=== PATIENT | female | born 1970 | race Caucasian/White ===

== ENCOUNTER 2017-02-03 06:48 | Emergency (ER) | payer SELFPAY ==
[~2017-02-03] VITALS: Ht 160 cm; Wt 90.7 kg
[~2017-02-03 06:48] MED LIST: ALBU0.632 IH; BUDE0.5A2 IH; BUDE6HFA IH; CEFP500T4 PO; CIPR-225 PO; DOXY100C2 PO; FAMO20TA5 PO; FLT05NA16 NSEACH; HYDR-3456 PO; HYDR-3720 PO; HYDR-3729 PO; HYDR-757 PO; HYOS0.1216 PO; IPRA3AMP19 IH; LEVO500T69 PO; MECL25TA56 PO; METH4TAB PO; METR500T PO; ONDA-42 SL; PANT40TA2 PO; PENI500T PO; PNT40TEC PO; PRD20T PO; SCR1T PO; SUCR1TAB36 PO; TRM50T PO
--- OUTSIDE RECORDS SUMMARY | 2017-02-03 06:55 | XMS REPORT ---
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 Info Not Available Non Drug Allergy Problems Problem Type Condition Code Onset Dates Condition Status Assessment Cough R05 Active Assessment COPD exacerbation J44.1 Active Problem COPD exacerbation J44.1 Active Medications Medication Code System Code Instructions Start Date End Date Status Dosage Azithromycin [facility] [address]-51 250 MG Orally Once a day Aug 20, 2016 Aug 25, 2016 2 tablets on the first day, then 1 tablet daily for 4 days PredniSONE [facility] [address]-65 50 mg Orally Once a day Aug 20, 2016 Aug 25, 2016 1 tablet Albuterol Sulfate [facility] [address]-51 2.5 mg /3 mL (0.083 %) Jul 13, 2014 1 Each by Inhalation route every 3-4 hours for cough and wheeze PRN for wheezing or cough Cetirizine HCl [facility] [address]-74 10 MG Orally Once a day 1 tablet Symbicort [facility] [address]-28 160-4.5 mcg/actuation Inhalation Twice a day Jul 13, 2014 inhale 2 puffs by inhalation route 2 times per day in the morning and evening Procedures Procedure Coding System Code Date MEASURE BLOOD OXYGEN LEVEL CPT-4 70121 Aug 20, 2016 Office Visit, Est Pt., Level 3 CPT-4 89868 Aug 20, 2016 CHEST X-RAY CPT-4 75210 Aug 20, 2016 Vital Signs Date/Time: Aug 20, 2016 Cardiac Monitoring Heart Rate 88 bpm Weight 231.4 lbs Height 62 in BMI 42.32 Index Oximetry 98 % Blood Pressure Diastolic 94 mmHg Blood Pressure Systolic 136 mmHg Results Name Result Date Reference Range Unit Abnormality Flag Xray : Chest (IN HOUSE) Summary Purpose eClinicalWorks Submission
--- NOTE | 2017-02-03 07:20 | ED EENT ---
History of Present Illness General Chief Complaint: Oral/Throat Problems Stated Complaint: THROAT SWOLLEN,CAN'T SWOLLOW Source: patient History of Present Illness Time seen by provider: 07:05 Initial Comments C/O SEVERE SORE THROAT SINCE WAKING THIS AM STATES SHE WAS FINE WHEN SHE WENT TO BED "FELT HOT" LAST PM AROUND 1999, BUT DID NOT TAKE TEMP,AND HAS NOT FELT THAT WAY SINCE. 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 HAS NOT TAKEN ANYTHING FOR PAIN PCP: DANIELLE-TIA, PAOLA JAVIER Allergies and Home Medications Allergies Coded Allergies: acetaminophen (Unverified Adverse Reaction, Mild, nausea, 08/13/11) propoxyphene napsylate (Unverified Adverse Reaction, Mild, nausea, 08/13/11 ) Home Medications Albuterol Sulfate 0.63 Mg/3 Ml Vial.neb 1 EACH IH Q 4 - 6 HRS PRN PRN PRN SHORTNESS OF BREATH (Reported) PRN SHORTNESS OF BREATH Budesonide/Formoterol Fumarate 10.2 Gm Hfa.aer.ad 2 PUFF IH BID (Reported) Pantoprazole Sodium 40 Mg Tablet.dr #14 40 MG PO DAILY Prescribed by: AYALA TOLBERT on 08/26/16 135 Sucralfate 1 Gm Tablet #40 1 GM PO QID Prescribed by: AYALA TOLBERT on 08/26/16 1357 Review of Systems Constitutional: see HPI Eyes: No Symptoms Reported Ears: No Symptoms Reported Nose: see HPI Mouth: no symptoms reported Throat: see HPI paindenies neck stiffness, denies hoarse, denies aphonia, denies muffled, painful swallowingdenies difficulty with fluids Respiratory: no symptoms reported Cardiovascular: no symptoms reported Gastrointestinal: no symptoms reported : No Musculoskeletal: no symptoms reported Skin: no symptoms reported Neurological: No Symptoms Reported Hematologic/Lymphatic: No Symptoms Reported Immunological/Allergic: no symptoms reported Past Yrsnwlp-Ciumho-Gokipo Hx Patient Social History Alcohol Use: Denies Use Recreational Drug Use: No Smoking Status: Current Everyday Smoker (1/2 PPD) Type Used: Cigarettes Recent Foreign Travel: No Contact w/Someone Who Travel: No Recent Hopitalizations: No Immunizations Up To Date Tetanus Booster (TDap): Less than 5yrs Date of Influenza Vaccine: Aug 16, 2012 Seasonal Allergies Seasonal Allergies: Yes Surgeries HX Surgeries: Yes (HERNIA REPAIR) Surgeries: Abdominal, Section, Gallbladder Respiratory Hx Respiratory Disorders: Yes Respiratory Disorders: Asthma, Pneumonia, Chronic Bronchitis Cardiovascular Hx Cardiac Disorders: No Neurological Hx Neurological Disorders: No Reproductive System Hx Reproductive Disorders: No Genitourinary Hx Genitourinary Disorders: No Gastrointestinal Hx Gastrointestinal Disorders: Yes (VENTRAL HERNIA ) Gastrointestinal Disorders: Abdominal Hernia, Hiatal Hernia Musculoskeletal Hx Musculoskeletal Disorders: No Endocrine Hx Endocrine Disorders: No HEENT HX ENT Disorders: No Cancer Hx Cancer: No Psychosocial Hx Psychiatric Problems: No Integumentary HX Skin/Integumentary Disorder: No Blood Transfusions Hx Blood Disorders: No Physical Exam Vital Signs Vital Sign - Last 12Hours 02/03/17 07:11 Temp 98.8 Pulse 90 Resp 18 B/P 149/99 Pulse Ox 96 General Appearance: WD/WN no apparent distress Eyes: bilateral eye EOMI, bilateral eye PERRL, bilateral eye normal inspection Ears: bilateral ear TM normal, bilateral ear auricle normal, bilateral ear canal normal Nose: normal inspection Mouth/Throat: No mandibular swelling, No maxillary swelling, No tonsillar exudate, No tonsillar swelling, No uvula swelling, No voice changes, other ( PHARYNX WITH MODERATE ERYTHEMA, NO EXDUATE, NO PALATAL PETECHIAE. 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 no motor/sensory deficits alert normal mood/affect oriented x 3 Skin: normal color warm/dryNo rash, tattoos/piercings (EXTENSIVE TATTOOS) Progress/Results/Core Measures Results/Orders Lab Results Laboratory Tests Test 02/03/17 07:05 Range/Units Group A Streptococcus Screen NEGATIVE NEGATIVE My Orders Orders-ITZ OLVERA DO Rapid Strep A Screen (02/03/17 07:07) Vital Signs/I&O Vital Sign - Last 12Hours 02/03/17 07:11 Temp 98.8 Pulse 90 Resp 18 B/P 149/99 Pulse Ox 96 Departure Impression Impression: Primary Impression: Pharyngitis Disposition: HOME, SELF-CARE Condition: Stable Departure-Patient Inst. Referrals: [facility] (PCP/Family) Primary Care Physician Patient Instructions: Sore Throat, Adult (DC) Add. Discharge Instructions: TYLENOL 1 GRAM / MOTRIN 800 MG 4 TIMES A DAY NEEDED FOR PAIN OR FEVER FREQUENT SALT WATER GARGLES LOTS OF CLEAR LIQUIDS FOLLOW UP WITH [facility] IN 2-3 DAYS IF NO BETTER All discharge instructions reviewed with patient and/or family. Voiced understanding. Scripts Prednisone 10 Mg Tab40 Mg PO DAILY #12 TAB Prov:ITZ OLVERA DO 02/03/17 Amoxicillin/Potassium Clav (Augmentin 875-125 Tablet)1 Each Tablet1 Each PO BID INFECTION #20 TAB Prov:ITZ OLVERA DO 02/03/17 Work/School Note: Work Release Form Date Seen in the Emergency Department: Feb 03, 2017 Return to Work: Feb 05, 2017 ITZ OLVERA DO Feb 03, 2017 07:19
[2017-02-03] MEDS ORDERED: AMOX-358 PO (07:28)
[2017-02-03] MEDS ORDERED: PRD10T PO (07:28)
[2017-02-03 07:43] VITALS: BP 140/82
[2017-02-03] MEDS ORDERED: KETOROLAC 60 MG/2 ML VIAL IM ONE (07:45)
[2017-02-03] MEDS ORDERED: LIDOCAINE 1% INJ 20 ML (XYLOCAINE) VIAL INJ ONE (07:45)
[2017-02-03] MEDS ORDERED: cefTRIAXone 1 GM (ROCEPHIN) VIAL IM ONE (07:45)
== END 2017-02-03 07:55 | disposition home or self-care (01) ==
LOC: EDUNIT# 06:48 → ER 06:51
DX: J02.9 Acute pharyngitis, unspecified (principal); F17.210 Nicotine dependence, cigarettes, uncomplicated
CPT/HCPCS: 87430; 96372; 99282

== ENCOUNTER 2017-02-26 19:11 | Emergency (ER) | payer SELFPAY ==
[~2017-02-26] VITALS: Ht 160 cm; Wt 90.7 kg
[~2017-02-26 19:11] MED LIST changes: +AMOX-358 PO; +PRD10T PO
[2017-02-26] MEDS ORDERED: RT-ALBUTEROL/IPRATROPIUM 3 ML (DUONEB) VIAL INH ONE (19:45)
[2017-02-26] MEDS ORDERED: DEXAMETHASONE 4 MG/ML SDV (DECADRON) IH ONE (19:45)
[2017-02-26] MEDS ORDERED: predniSONE 10 MG TAB PO ONE (19:45)
[2017-02-26] MEDS ORDERED: BUDE1AMP IH (20:10)
[2017-02-26] MEDS ORDERED: D-ME118S7 PO (20:10)
[2017-02-26] MEDS ORDERED: BENZ-13 PO (20:10)
[2017-02-26] MEDS ORDERED: PRD10T PO (20:10)
--- NOTE | 2017-02-26 20:12 | ED Cough/URI ---
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 STATES SHE WAS IN SOME PROGRAM THAT PAID FOR HER MEDICATION, BUT THAT PROGRAM HAS STOPPED, AND THEREFORE SHE IS UNABLE TO TEZ REFILLED DUE TO COST. HAS NOT DISCUSSED THIS WITH JAMEY PT CONTINUES TO SMOKE PCP: JAMEY, PAOLA JAVIER Allergies and Home Medications Allergies Coded Allergies: acetaminophen (Unverified Adverse Reaction, Mild, nausea, 08/13/11) propoxyphene napsylate (Unverified Adverse Reaction, Mild, nausea, 08/13/11 ) Home Medications Albuterol Sulfate 0.63 Mg/3 Ml Vial.neb, 1 EACH IH Q 4 - 6 HRS PRN PRN for SHORTNESS OF BREATH, (Reported) PRN SHORTNESS OF BREATH Benzonatate 100 Mg Capsule, 1-2 TAB PO TID, #30 Prescribed by: ITZ OLVERA on 02/26/172009 Budesonide 1 Mg/2 Ml Ampul.neb, 1 MG IH BID, #1 Prescribed by: ITZ OLVERA on 02/26/172009 D-Methorphan Hb/Prometh HCl 118 Ml Syrup, 1-2 TSP PO Q4H, #120 Prescribed by: ITZ OLVERA on 02/26/172009 Prednisone 10 Mg Tab, 40 MG PO DAILY, #12 Prescribed by: ITZ OLVERA on 02/26/172009 Constitutional: no symptoms reported EENTM: no symptoms reported Respiratory: see HPI, cough, short of breath, wheezing Cardiovascular: no symptoms reported Gastrointestinal: no symptoms reported Genitourinary: no symptoms reported Musculoskeletal: no symptoms reported Skin: no symptoms reported Psychiatric/Neurological: No Symptoms Reported Hematologic/Lymphatic: No Symptoms Reported Immunological/Allergic: no symptoms reported Past Fhxjpue-Sxywgh-Eibfcc Hx Patient Social History Alcohol Use: Denies Use Recreational Drug Use: No Smoking Status: Current Everyday Smoker (1 1/2 PPD) Type Used: Cigarettes Recent Foreign Travel: No Contact w/Someone Who Travel: No Recent Infectious Disease Expo: No Recent Hopitalizations: No Immunizations Up To Date Tetanus Booster (TDap): Less than 5yrs Date of Influenza Vaccine: Aug 16, 2012 Seasonal Allergies Seasonal Allergies: Yes Surgeries HX Surgeries: Yes (HERNIA REPAIR) Surgeries: Abdominal, Section, Gallbladder Respiratory Hx Respiratory Disorders: Yes Respiratory Disorders: Asthma, Pneumonia, Chronic Bronchitis Cardiovascular Hx Cardiac Disorders: No Neurological Hx Neurological Disorders: No Reproductive System Hx Reproductive Disorders: No Genitourinary Hx Genitourinary Disorders: No Gastrointestinal Hx Gastrointestinal Disorders: Yes (VENTRAL HERNIA ) Gastrointestinal Disorders: Abdominal Hernia, Hiatal Hernia Musculoskeletal Hx Musculoskeletal Disorders: No Endocrine Hx Endocrine Disorders: No HEENT HX ENT Disorders: No Cancer Hx Cancer: No Psychosocial Hx Psychiatric Problems: No Integumentary HX Skin/Integumentary Disorder: No Blood Transfusions Hx Blood Disorders: No Physical Exam Vital Signs Vital Sign - Last 12Hours 02/26/17 19:20 Temp 98.7 Pulse 91 Resp 24 B/P (MAP) 180/95 Pulse Ox 95 Capillary Refill : Less Than 3 Seconds General Appearance: WD/WN, no apparent distress, other (STRONG ODOR OF CIGARETTES) HEENT: PERRL/EOMI, TMs normal, pharynx normal Neck: normal inspection Respiratory: no respiratory distress, no accessory muscle use, decreased breath sounds, wheezing (EXPIRATORY WHEEZING BILATERALLY) Cardiovascular: regular rate, rhythm, no murmur Gastrointestinal: soft Extremities: normal inspection, no pedal edema, no calf tenderness, normal capillary refill 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, no motor/sensory deficits, alert, normal mood/affect, oriented x 3 Skin: normal color, warm/dry Progress/Results/Core Measures Results/Orders My Orders Orders - ITZ OLVERA DO Albuterol/Ipra Inhalation Soln (Duoneb I (02/26/17 19:45) Dexamethasone Injection (Decadron Inject (02/26/17 19:45) Rt Request For Service (02/26/17 19:35) Svn Sm Volume Nebulizer Rt-Rfs (02/26/17 19:35) Prednisone Tablet (Deltasone Tablet) (02/26/17 19:45) Rt Request For Service (02/26/17 20:16) Medications Given in ED Current Medications Medications Dose Ordered Sig/Jazmyne Route Start Time Stop Time Status Last Admin Dose Admin Albuterol/ Ipratropium 3 ml ONCE ONCE INH 02/26/17 19:45 02/26/17 19:46 DC 02/26/17 19:56 3 ML Dexamethasone Sodium Phosphate 20 mg ONCE ONCE IH 02/26/17 19:45 02/26/17 19:46 DC 02/26/17 19:56 20 MG Prednisone 40 mg ONCE ONCE PO 02/26/17 19:45 02/26/17 19:46 DC 02/26/17 19:55 40 MG Vital Signs/I&O Vital Sign - Last 12Hours 02/26/17 02/26/17 02/26/17 19:20 19:57 20:27 Temp 98.7 98.7 Pulse 91 91 Resp 24 24 B/P (MAP) 180/95 Pulse Ox 95 95 95 Blood Pressure Mean: 123 Progress Note : Progress Note IMPROVED LUNG SOUNDS AND PT STATES SHE FEELS MUCH BETTER AND CAN TAKE A DEEPER BREATH AT TIME OF DISMISSAL. INCREASED AERATION, DECREASED WHEEZING Departure Impression Impression: Primary Impression: Asthma exacerbation Additional Impression: Smoker Disposition: 01 HOME, SELF-CARE Condition: Improved Departure-Patient Inst. Referrals: [facility] (PCP/Family) Primary Care Physician Patient Instructions: Asthma, Adult (DC), SMOKING CESSATION Add. Discharge Instructions: USE YOUR ALBUTEROL NEBULIZER EVERY 4 HOURS NEEDED FOLLOW UP WITH [facility] IN 1-2 DAYS FOR FURTHER CARE RETURN TO ER IF WORSE All discharge instructions reviewed with patient and/or family. Voiced understanding. Scripts D-Methorphan Hb/Prometh HCl (Promethazine-Dm Syrup) 118 Ml Syrup 1-2 TSP PO Q4H for Cough, #120 ML Prov: ITZ OLVERA DO 02/26/17 Prednisone (Prednisone) 10 Mg Tab 40 MG PO DAILY, #12 TAB Prov: ITZ OLVERA DO 02/26/17 Budesonide (Pulmicort) 1 Mg/2 Ml Ampul.neb 1 MG IH BID, #1 UNIT Prov: ITZ OLVERA DO 02/26/17 Benzonatate (Tessalon Perle) 100 Mg Capsule 1-2 TAB PO TID for Cough, #30 CAP Prov: ITZ OLVERA DO 02/26/17 ITZ OLVERA DO Feb 26, 2017 20:11
[2017-02-26 20:27] VITALS: BP 165/88
== END 2017-02-26 20:27 | disposition home or self-care (01) ==
LOC: EDUNIT# 19:11 → ER 19:13
DX: J45.901 Unspecified asthma with (acute) exacerbation (principal); F17.210 Nicotine dependence, cigarettes, uncomplicated
CPT/HCPCS: 94640; 99282

== ENCOUNTER 2018-05-29 20:18 | Emergency (ER) | payer SELFPAY ==
[~2018-05-29] VITALS: Ht 157.5 cm; Wt 104.3 kg
[~2018-05-29 20:18] MED LIST changes: +BENZ-13 PO; +BUDE1AMP IH; +D-ME118S7 PO
[2018-05-29] MEDS ORDERED: cefTRIAXone 1 GM (ROCEPHIN) VIAL IM ONE (20:45)
[2018-05-29] MEDS ORDERED: LIDOCAINE 1% INJ 20 ML 20 ML VIAL INJ ONE (20:45)
[2018-05-29 21:04] LABS: BASOPHILS % (AUTO) 0 % (0-10); EOSINOPHILS % (AUTO) 0 % (0-10); HEMATOCRIT 46 % (35-52); HEMOGLOBIN 16.4 G/DL (11.5-16.0); LYMPHOCYTES # (AUTO) 2.5 X 10^3 (1.0-4.0); LYMPHOCYTES % (AUTO) 21 % (12-44); MEAN CORPUSCULAR HEMOGLOBIN 32 PG (25-34); MEAN CORPUSCULAR HGB CONC 35 G/DL (32-36); MEAN CORPUSCULAR VOLUME 90 FL (80-99); MEAN PLATELET VOLUME 9.6 FL (7.4-10.4); MONOCYTES # (AUTO) 0.7 X 10^3 (0.0-1.0); MONOCYTES % (AUTO) 6 % (0-12); NEUTROPHILS # (AUTO) 8.9 X 10^3 (1.8-7.8); NEUTROPHILS % (AUTO) 73 % (42-75); PLATELET COUNT 224 10^3/uL (130-400); RED BLOOD COUNT 5.14 10^6/uL (4.35-5.85); RED CELL DISTRIBUTION WIDTH 13.5 % (10.0-14.5); WHITE BLOOD COUNT 12.2 10^3/uL (4.3-11.0)
--- NOTE | 2018-05-29 21:11 | ED Integumentary General ---
General Chief Complaint: Bite-Animal/Human/Insect Stated Complaint: BIT BY SPIDER,SWELLING,WENT TO CLINIC,PAIN Nursing Triage Note: PT PRESENTS TO ER WITH COMPLAINT OF BROWN RECLUSE SPIDER BITE ON . WAS SEEN IN CLINIC ON THURSDAY, PRESCRIBED ANTIBIOTICS. PT STATES THE REDNESS AND SWELLING HAS INCREASED. Source: patient Exam Limitations: no limitations History of Present Illness Date Seen by Provider: May 29, 2018 Time Seen by Provider: 21:06 Initial Comments Patient is a 48-year-old female who presents to the emergency room with complaints of a brown recluse bite to her right upper arm on Thursday05/26/18. She reports that she went to the [facility] that day and was given a shot of Rocephin and placed on Bactrim and dapsone. Today she reports that the redness is spreading down her arm and this concerned her. She denies any pain with this. Timing/Duration: this evening Severity: mild Possible Cause: insect bite Associated Symptoms: change in skin texture, rash Allergies and Home Medications Allergies Coded Allergies: acetaminophen (Unverified Adverse Reaction, Mild, nausea, 08/13/11) propoxyphene napsylate (Unverified Adverse Reaction, Mild, nausea, 08/13/11 ) Home Medications Albuterol Sulfate 0.63 Mg/3 Ml Vial.neb, 1 EACH IH Q 4 - 6 HRS PRN PRN for SHORTNESS OF BREATH, (Reported) PRN SHORTNESS OF BREATH Benzonatate 100 Mg Capsule, 1-2 TAB PO TID Prescribed by: ITZ OLVERA on 02/26/172009 Budesonide 1 Mg/2 Ml Ampul.neb, 1 MG IH BID Prescribed by: ITZ OLVERA on 02/26/172009 D-Methorphan Hb/Prometh HCl 118 Ml Syrup, 1-2 TSP PO Q4H Prescribed by: ITZ OLVERA on 02/26/172009 Hydrocodone Bit/Acetaminophen 1 Tab Tab, 1 EACH PO Q4H PRN for PAIN-MODERATE Prescribed by: DARIN MAX on 05/29/182137 Prednisone 10 Mg Tab, 40 MG PO DAILY Prescribed by: ITZ OLVERA on 02/26/172009 Patient Home Medication List Home Medication List Reviewed: Yes Constitutional: see HPI; No chills, No diaphoresis, No fever EENTM: see HPI; No no symptoms reported, No ear discharge, No hearing loss, No ear pain, No blurred vision Respiratory: see HPI; No cough, No dyspnea on exertion Cardiovascular: see HPI; No chest pain, No edema Gastrointestinal: see HPI; No abdominal pain, No constipation Genitourinary: see HPI; No decreased output, No discharge Musculoskeletal: see HPI; No back pain, No gout Skin: see HPI, change in color, rash (spreading rash on her arm.) Psychiatric/Neurological: See HPI; Denies Anxiety, Denies Depressed Endocrine: See HPI; Denies Excessive Sweating, Denies Flushing Hematologic/Lymphatic: See HPI; Denies Anemia, Denies Blood Clots All Other Systems Reviewed Negative Unless Noted: Yes Past Iltmogc-Pyxnsy-Hkxqqo Hx Past Med/Social Hx: Reviewed Nursing Past Med/Soc Hx Patient Social History Alcohol Use: Denies Use Recreational Drug Use: No Smoking Status: Current Everyday Smoker Type Used: Cigarettes Former Smoker, Quit: Aug 28, 2015 Recent Foreign Travel: No Contact w/Someone Who Travel: No Recent Infectious Disease Expo: No Recent Hopitalizations: No Immunizations Up To Date Tetanus Booster (TDap): Less than 5yrs Date of Influenza Vaccine: Aug 16, 2012 Seasonal Allergies Seasonal Allergies: Yes Past Medical History Surgeries: Yes (HERNIA REPAIR) Abdominal, Section, Gallbladder Respiratory: Yes Asthma, Pneumonia, Chronic Bronchitis Cardiac: No Neurological: No Reproductive Disorders: No Gastrointestinal: Yes (VENTRAL HERNIA ) Abdominal Hernia, Hiatal Hernia Musculoskeletal: No Endocrine: No Cancer: No Psychosocial: No Integumentary: No Blood Disorders: No Family Medical History Reviewed Nursing Family Hx Physical Exam Vital Signs Vital Signs - First Documented 05/29/18 20:32 Temp 96.8 Pulse 91 Resp 20 B/P (MAP) 167/100 (122) Pulse Ox 94 O2 Delivery Room Air Capillary Refill : Less Than 3 Seconds General Appearance: WD/WN, no apparent distress HEENT: PERRL/EOMI, normal ENT inspection, TMs normal, pharynx normal Neck: non-tender, full range of motion, supple, normal inspection Cardiovascular: regular rate, rhythm, no edema, no gallop, no JVD, no murmur Respiratory: chest non-tender, lungs clear, normal breath sounds, no respiratory distress, no accessory muscle use Gastrointestinal: normal bowel sounds, non tender, soft, no organomegaly, no pulsatile mass Back: normal inspection, no CVA tenderness, no vertebral tenderness Extremities: normal range of motion, non-tender, normal inspection, no pedal edema, no calf tenderness Neurologic/Psychiatric: alert, normal mood/affect, oriented x 3 Skin: warm/dry Skin Problem Location: upper extremities (right arm) Skin Problem Character: erythema (there is a erythematous area in the shoulder to the elbow on the patient's right arm. There is mild tenderness on this area. On palpation there does not appear to be anything that can be I&D.), tenderness Progress/Results/Core Measures Results/Orders Lab Results Laboratory Tests Test 05/29/18 20:57 Range/Units White Blood Count 12.2 H 4.3-11.0 10^3/uL Red Blood Count 5.14 4.35-5.85 10^6/uL Hemoglobin 16.4 H 11.5-16.0 G/DL Hematocrit 46 35-52 % Mean Corpuscular Volume 90 80-99 FL Mean Corpuscular Hemoglobin 32 25-34 PG Mean Corpuscular Hemoglobin Concent 35 32-36 G/DL Red Cell Distribution Width 13.5 10.0-14.5 % Platelet Count 224 130-400 10^3/uL Mean Platelet Volume 9.6 7.4-10.4 FL Neutrophils (%) (Auto) 73 42-75 % Lymphocytes (%) (Auto) 21 12-44 % Monocytes (%) (Auto) 6 0-12 % Eosinophils (%) (Auto) 0 0-10 % Basophils (%) (Auto) 0 0-10 % Neutrophils # (Auto) 8.9 H 1.8-7.8 X 10^3 Lymphocytes # (Auto) 2.5 1.0-4.0 X 10^3 Monocytes # (Auto) 0.7 0.0-1.0 X 10^3 Eosinophils # (Auto) 0.0 0.0-0.3 10^3/uL Basophils # (Auto) 0.0 0.0-0.1 10^3/uL My Orders Orders - HUNTER BEVERLY Cbc With Automated Diff (05/29/18 20:43) Ceftriaxone Injection (Rocephin Injectio (05/29/18 20:45) Lidocaine 1% Inj 20 Ml (Xylocaine 1% Inj (05/29/18 20:45) Im Injection Antibiotic Ed (05/29/18 ) Vital Signs/I&O 05/29/18 05/29/18 20:32 21:47 Temp 96.8 96.8 Pulse 91 91 Resp 20 20 B/P (MAP) 167/100 (122) 154/101 (122) Pulse Ox 94 94 O2 Delivery Room Air Room Air Blood Pressure Mean: 122 Departure Impression Primary Impression: Cellulitis Disposition: HOME, SELF-CARE Condition: Stable/Unchanged Departure-Patient Inst. Decision time for Depature: 21:38 Referrals: [facility] (PCP/Family) Primary Care Physician Patient Instructions: Cellulitis (Skin Infection), Adult (DC) Add. Discharge Instructions: Continue antibiotics as previously prescribed. Use the pain medication for pain unrelieved by Tylenol and ibuprofen. Follow with your doctor within 1 week for recheck. Return back to the emergency room for any concerns as needed. All discharge instructions reviewed with patient and/or family. Voiced understanding. Scripts Hydrocodone Bit/Acetaminophen (Hydrocodone/Acetaminophen 5/325mg Tablet) 1 Tab Tab 1 EACH PO Q4H PRN for PAIN-MODERATE, #10 TAB 0 Refills Prov: DARIN MAX MD 05/29/18 HUNTER BEVERLY May 29, 2018 21:11
[2018-05-29] MEDS ORDERED: ACHD5005 PO (21:38)
[2018-05-29 21:47] VITALS: BP 154/101
== END 2018-05-29 21:47 | disposition home or self-care (01) ==
LOC: EDUNIT# 20:18 → ER 20:20
DX: L03.113 Cellulitis of right upper limb (principal); J44.9 Chronic obstructive pulmonary disease, unspecified; F17.210 Nicotine dependence, cigarettes, uncomplicated; Z88.5 Allergy status to narcotic agent; Z87.59 Personal history of other complications of pregnancy, childbirth and the puerperium; Z87.19 Personal history of other diseases of the digestive system
CPT/HCPCS: 36415; 85025; 96372; 99284

== ENCOUNTER 2019-08-09 07:46 | Emergency (ER) | payer SELFPAY ==
[~2019-08-09] VITALS: Ht 157 cm; Wt 99.0 kg
[~2019-08-09 07:46] MED LIST changes: +ACHD5005 PO; -BENZ-13 PO; +BENZ100C18 PO; -D-ME118S7 PO; +HYDR-4226 PO; -HYDR-757 PO; +PROM118S4 PO
[2019-08-09 07:59] LABS: BILIRUBIN,URINE NEGATIVE (NEGATIVE); CLARITY,URINE SLIGHTLY CLOUDY; COLOR,URINE YELLOW; GLUCOSE, URINE (UA) NEGATIVE (NEGATIVE); KETONES,URINE NEGATIVE (NEGATIVE); LEUKOCYTE ESTERASE ,URINE 1+ (NEGATIVE); NITRITE,URINE NEGATIVE (NEGATIVE); PH,URINE 5 (5-9); PROTEIN,URINE 3+ (NEGATIVE); UROBILINOGEN,URINE NORMAL (NORMAL)
[2019-08-09 08:26] LABS: BACTERIA,URINE MODERATE /HPF; SQUAMOUS EPITHELIAL CELL,UR 25-50 /HPF
[2019-08-09 08:28] LABS: BASOPHILS % (AUTO) 0 % (0-10); EOSINOPHILS % (AUTO) 0 % (0-10); HEMATOCRIT 45 % (35-52); HEMOGLOBIN 15.3 G/DL (11.5-16.0); LYMPHOCYTES # (AUTO) 2.3 X 10^3 (1.0-4.0); LYMPHOCYTES % (AUTO) 17 % (12-44); MEAN CORPUSCULAR HEMOGLOBIN 31 PG (25-34); MEAN CORPUSCULAR HGB CONC 34 G/DL (32-36); MEAN CORPUSCULAR VOLUME 90 FL (80-99); MEAN PLATELET VOLUME 9.7 FL (7.4-10.4); MONOCYTES # (AUTO) 0.7 X 10^3 (0.0-1.0); MONOCYTES % (AUTO) 5 % (0-12); NEUTROPHILS # (AUTO) 10.6 X 10^3 (1.8-7.8); NEUTROPHILS % (AUTO) 77 % (42-75); PLATELET COUNT 308 10^3/uL (130-400); RED CELL DISTRIBUTION WIDTH 13.4 % (10.0-14.5); WHITE BLOOD COUNT 13.7 10^3/uL (4.3-11.0)
[2019-08-09 08:40] LABS: ALANINE AMINOTRANSFERASE 12 U/L (0-55); ALKALINE PHOSPHATASE 88 U/L (40-136); BILIRUBIN,TOTAL 0.9 MG/DL (0.1-1.0); BUN/CREATININE RATIO 11; CARBON DIOXIDE 21 MMOL/L (21-32); CHLORIDE 105 MMOL/L (98-107); CREATININE SERUM 0.73 MG/DL (0.60-1.30); GFR ESTIMATED > 60; GLUCOSE 126 MG/DL (70-105); POTASSIUM 4.8 MMOL/L (3.6-5.0); SODIUM 133 MMOL/L (135-145); TOTAL PROTEIN 8.1 GM/DL (6.4-8.2)
--- NOTE | 2019-08-09 08:45 | NUR ---
NOTIFIED PT THAT DR SHOULD BE IN SOON.
[2019-08-09] MEDS ORDERED: NS IV 1000 ML 1,000 ML IV ONE (09:01)
[2019-08-09] MEDS ORDERED: KETOROLAC 30 MG/ML VIAL IVP ONE (09:15)
[2019-08-09] MEDS ORDERED: ONDANSETRON 4 MG/2 ML (SDV) Z0FRAN IVP ONE (09:15)
--- NOTE | 2019-08-09 09:39 | Diagnostic Imaging Report ---
PROCEDURE: CT urinary tract, rule out kidney stone. TECHNIQUE: Multiple contiguous axial images were obtained through the abdomen and pelvis without the use of intravenous contrast. Auto Exposure Controls were utilized during the CT exam to meet ALARA standards for radiation dose reduction. INDICATION: Right-sided abdominal pain and hematuria. Correlation is made with prior CT from 09/15/2015. FINDINGS: The lung bases are clear. No discrete liver mass is identified. The gallbladder is surgically absent. No biliary ductal dilatation is seen. Pancreas and spleen are unremarkable. No adrenal mass is identified. Tiny nonobstructing calculi left kidney are seen. No right-sided renal calculi are identified. There is no ureteral calculi or evidence of hydronephrosis. The aorta is non-aneurysmal. The small and large bowel loops are normal caliber. No obstruction is identified. The appendix is visualized and unremarkable. No free fluid or loculated fluid collection is identified. Bladder and uterus are unremarkable. No definite inflammatory changes are seen. IMPRESSION: 1. Tiny nonobstructing left renal calculus. No ureteral calculi or hydronephrosis is seen. 2. No CT evidence of acute appendicitis. 3. No acute feature is identified. Dictated by: Dictated on workstation # [id number]
--- NOTE | 2019-08-09 09:52 | NUR ---
IN TALKING TO PT AT THIS TIME.
[2019-08-09] MEDS ORDERED: CEPH-507 PO (09:59)
[2019-08-09] MEDS ORDERED: ONDA4TAB11 SL (09:59)
--- NOTE | 2019-08-09 09:59 | ED Abdominal Pain ---
General Chief Complaint: Abdominal/GI Problems Stated Complaint: R SIDE PAIN Nursing Triage Note: ARRIVED VIA AMB TO ROOM 10 WITH COMPLAINTS OF RIGHT SIDED ABD PAIN STARTING YESTERDAY AT 1630. COMPLAINS OF NAUSEA ALONG WITH THE ABD PAIN. Sepsis Screen: No Definite Risk Source of Information: Patient Exam Limitations: No Limitations History of Present Illness Date Seen by Provider: Aug 09, 2019 Time Seen by Provider: 08:56 Initial Comments This 49-year-old woman presents to the emergency room with complaints of right- sided abdominal pain that started yesterday afternoon. She has had associated nausea without vomiting, diarrhea, or constipation. She is afebrile. She has history of multiple abdominal surgeries including placement of mesh for hernia repair, cholecystectomy, and section. She denies any urinary changes. Allergies and Home Medications Allergies Coded Allergies: acetaminophen (Unverified Adverse Reaction, Mild, nausea, 08/13/11) propoxyphene napsylate (Unverified Adverse Reaction, Mild, nausea, 08/13/11) Home Medications Albuterol Sulfate 0.63 Mg/3 Ml Vial.neb, 1 EACH IH Q 4 - 6 HRS PRN PRN for SHORTNESS OF BREATH, (Reported) PRN SHORTNESS OF BREATH Benzonatate 100 Mg Capsule, 1-2 TAB PO TID Prescribed by: ITZ OLVERA on 02/26/172009 Budesonide 1 Mg/2 Ml Ampul.neb, 1 MG IH BID Prescribed by: ITZ OLVERA on 02/26/172009 Cephalexin 500 Mg Capsule, 500 MG PO TID Prescribed by: KYA VALDERRAMA on 08/09/19 0959 D-Methorphan Hb/Prometh HCl 118 Ml Syrup, 1-2 TSP PO Q4H Prescribed by: ITZ OLVERA on 02/26/172009 Hydrocodone Bit/Acetaminophen 1 Tab Tab, 1 EACH PO Q4H PRN for PAIN-MODERATE Prescribed by: DARIN MAX on 05/29/182137 Ondansetron 4 Mg Tab.rapdis, 4 MG SL Q4H PRN for NAUSEA/VOMITING Prescribed by: KYA VALDERRAMA on 08/09/19 09 Prednisone 10 Mg Tab, 40 MG PO DAILY Prescribed by: ITZ OLVERA on 02/26/172009 Patient Home Medication List Home Medication List Reviewed: Yes Review of Systems Review of Systems Constitutional: no symptoms reported EENTM: No Symptoms Reported Respiratory: No Symptoms Reported Cardiovascular: No Symptoms Reported Gastrointestinal: See HPI Genitourinary: No Symptoms Reported Musculoskeletal: no symptoms reported Skin: no symptoms reported Psychiatric/Neurological: No Symptoms Reported Endocrine: No Symptoms Reported Past Fqgzreu-Sucifd-Adkzqd Hx Past Med/Social Hx: Reviewed and Corrections made Patient Social History Alcohol Use: Denies Use Recreational Drug Use: No Smoking Status: Current Everyday Smoker Type Used: Cigarettes Former Smoker, Quit: Aug 28, 2015 Recent Foreign Travel: No Contact w/Someone Who Travel: No Recent Infectious Disease Expo: No Recent Hopitalizations: No Immunizations Up To Date Tetanus Booster (TDap): Less than 5yrs Date of Influenza Vaccine: Aug 16, 2012 Seasonal Allergies Seasonal Allergies: Yes Past Medical History Surgeries: Yes (HERNIA REPAIR) Abdominal, Section, Gallbladder Respiratory: Yes Asthma, Pneumonia, Chronic Bronchitis Cardiac: No Neurological: No Reproductive Disorders: No Gastrointestinal: Yes (VENTRAL HERNIA ) Abdominal Hernia, Hiatal Hernia Musculoskeletal: No Endocrine: No Cancer: No Psychosocial: No Integumentary: No Blood Disorders: No Physical Exam Vital Signs Vital Signs - First Documented 08/09/19 08/09/19 07:50 10:20 Temp 36.8 Pulse 84 Resp 16 B/P (MAP) 149/91 (110) Pulse Ox 96 O2 Delivery Room Air Capillary Refill : Less Than 3 Seconds Height/Weight/BMI Height: 5'2.00" Weight: 230lbs. oz. 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, no motor/sensory deficits, alert, normal mood/affect, oriented x 3 Skin: normal color, warm/dry Progress/Results/Core Measures Results/Orders Lab Results Laboratory Tests Test 08/09/19 07:54 08/09/19 08:00 Range/Units Urine Color YELLOW Urine Clarity SLIGHTLY CLOUDY Urine pH 5 5-9 Urine Specific [place] 1.025 H 1.016-1.022 Urine Protein 3+ H NEGATIVE Urine Glucose (UA) NEGATIVE NEGATIVE Urine Ketones NEGATIVE NEGATIVE Urine Nitrite NEGATIVE NEGATIVE Urine Bilirubin NEGATIVE NEGATIVE Urine Urobilinogen NORMAL NORMAL MG/DL Urine Leukocyte Esterase 1+ H NEGATIVE Urine RBC (Auto) 4+ H NEGATIVE Urine RBC 2-5 H /HPF Urine WBC 2-5 /HPF Urine Squamous Epithelial Cells 25-50 H /HPF Urine Crystals NONE /LPF Urine Bacteria MODERATE H /HPF Urine Casts NONE /LPF Urine Mucus NEGATIVE /LPF Urine Culture Indicated YES White Blood Count 13.7 H 4.3-11.0 10^3/uL Red Blood Count 4.96 4.35-5.85 10^6/uL Hemoglobin 15.3 11.5-16.0 G/DL Hematocrit 45 35-52 % Mean Corpuscular Volume 90 80-99 FL Mean Corpuscular Hemoglobin 31 25-34 PG Mean Corpuscular Hemoglobin Concent 34 32-36 G/DL Red Cell Distribution Width 13.4 10.0-14.5 % Platelet Count 308 130-400 10^3/uL Mean Platelet Volume 9.7 7.4-10.4 FL Neutrophils (%) (Auto) 77 H 42-75 % Lymphocytes (%) (Auto) 17 12-44 % Monocytes (%) (Auto) 5 0-12 % Eosinophils (%) (Auto) 0 0-10 % Basophils (%) (Auto) 0 0-10 % Neutrophils # (Auto) 10.6 H 1.8-7.8 X 10^3 Lymphocytes # (Auto) 2.3 1.0-4.0 X 10^3 Monocytes # (Auto) 0.7 0.0-1.0 X 10^3 Eosinophils # (Auto) 0.0 0.0-0.3 10^3/uL Basophils # (Auto) 0.0 0.0-0.1 10^3/uL Sodium Level 133 L 135-145 MMOL/L Potassium Level 4.8 3.6-5.0 MMOL/L Chloride Level 105 98-107 MMOL/L Carbon Dioxide Level 21 21-32 MMOL/L Anion Gap 7 5-14 MMOL/L Blood Urea Nitrogen 8 7-18 MG/DL Creatinine 0.73 0.60-1.30 MG/DL Estimat Glomerular Filtration Rate > 60 BUN/Creatinine Ratio 11 Glucose Level 126 H 70-105 MG/DL Calcium Level 10.0 8.5-10.1 MG/DL Corrected Calcium 10.0 8.5-10.1 MG/DL Total Bilirubin 0.9 0.1-1.0 MG/DL Aspartate Amino Transf (AST/SGOT) 21 5-34 U/L Alanine Aminotransferase (ALT/SGPT) 12 0-55 U/L Alkaline Phosphatase 88 40-136 U/L Total Protein 8.1 6.4-8.2 GM/DL Albumin 4.0 3.2-4.5 GM/DL Micro Results Microbiology 08/09/19 Urine Culture - Final, Complete 3 or more isolates My Orders Orders - KYA OCAMPO MD Ua Culture If Indicated (08/09/19 07:55) Cbc With Automated Diff (08/09/19 08:22) Comprehensive Metabolic Panel (08/09/19 08:22) Ed Iv/Invasive Line Start (08/09/19 08:22) Urine Culture (08/09/19 07:54) Ns Iv 1000 Ml (Sodium Chloride 0.9%) (08/09/19 09:01) Ketorolac Injection (Toradol Injection) (08/09/19 09:15) Ondansetron Injection (Zofran Injectio (08/09/19 09:15) Ct Abd/Pelvis Wo(Kidney Stone) (08/09/19 09:01) Ceftriaxone For Iv Use (Rocephin For I (08/09/19 10:00) Iv Push Saw Repairer Ed (08/09/19 ) Medications Given in ED Vital Signs/I&O 08/09/19 08/09/19 07:50 10:20 Temp 36.8 Pulse 84 77 Resp 16 16 B/P (MAP) 149/91 (110) 127/48 Pulse Ox 96 98 O2 Delivery Room Air Blood Pressure Mean: 110 Progress Progress Note : Progress Note Patient was found to have a mild leukocytosis on labs. Imaging studies were discussed with patient. She elects to proceed with CT. Symptoms were rather suspicious for ureteral stone. No acute abnormalities were identified on the CT scan to explain her pain. There was questionable evidence of urinary tract infection and patient was treated accordingly. Pain may be related to viral illness. Patient was treated with Toradol, Rocephin, Zofran, and IV fluids. Diagnostic Imaging Diagonstic Imaging: CT Plain Films/CT/US/NM/MRI: abdomen, pelvis Comments CT viewed by me and report reviewed. See report below: NAME: [facility] REC#: [id number] PT STATUS: DEP ER : [id number] PHYSICIAN: KYA OCAMPO MD ADMIT DATE: 08/09/19/ER Signed Date of Exam: 08/09/19 CT ABD/PELVIS WO(KIDNEY STONE) PROCEDURE: CT urinary tract, rule out kidney stone. TECHNIQUE: Multiple contiguous axial images were obtained through the abdomen and pelvis without the use of intravenous contrast. Auto Exposure Controls were utilized during the CT exam to meet ALARA standards for radiation dose reduction. INDICATION: Right-sided abdominal pain and hematuria. Correlation is made with prior CT from 09/15/2015. FINDINGS: The lung bases are clear. No discrete liver mass is identified. The gallbladder is surgically absent. No biliary ductal dilatation is seen. Pancreas and spleen are unremarkable. No adrenal mass is identified. Tiny nonobstructing calculi left kidney are seen. No right-sided renal calculi are identified. There is no ureteral calculi or evidence of hydronephrosis. The aorta is non-aneurysmal. The small and large bowel loops are normal caliber. No obstruction is identified. The appendix is visualized and unremarkable. No free fluid or loculated fluid collection is identified. Bladder and uterus are unremarkable. No definite inflammatory changes are seen. IMPRESSION: 1. Tiny nonobstructing left renal calculus. No ureteral calculi or hydronephrosis is seen. 2. No CT evidence of acute appendicitis. 3. No acute feature is identified. Dictated by: Dictated on workstation # [id number] Dict: 08/09/1932 Trans: 08/09/19 1552 Interpreted by: PITA ROBIN MD Electronically signed by: PITA ROBIN MD 08/09/19 1552 Departure Impression Primary Impression: Right sided abdominal pain Additional Impressions: Urinary tract infection Qualified Codes: N39.0 - Urinary tract infection, site not specified Nausea alone Disposition: 01 HOME, SELF-CARE Condition: Improved Departure-Patient Inst. Decision time for Depature: 09:57 Referrals: [facility] [place] (PCP/Family) Primary Care Physician Patient Instructions: Acute Abdomen (Belly Pain), Adult (DC), Urinary Tract Infection, Adult (DC) Add. Discharge Instructions: Complete your antibiotics as prescribed. Take Tylenol (acetaminophen) up to 1000 mg every 6 hours as needed for pain. Add ibuprofen up to 600 mg every 6 hours as needed for additional pain relief if needed. Take ibuprofen with food or milk to avoid stomach irritation. Dissolve Zofran (ondansetron) under your tongue every 4 hours as needed for nausea or vomiting. Return to care if you have worsening symptoms or if you develop new symptoms such as fever, vomiting, etc. Follow-up with your primary care provider as soon as possible. All discharge instructions reviewed with patient and/or family. Voiced understanding. Scripts Cephalexin (Keflex) 500 Mg Capsule 500 MG PO TID, #20 CAP Prov: KYA OCAMPO MD 08/09/19 Ondansetron (Ondansetron Odt) 4 Mg Tab.rapdis 4 MG SL Q4H PRN for NAUSEA/VOMITING, #10 TAB Prov: KYA OCAMPO MD 08/09/19 Work/School Note: Work Release Form Date Seen in the Emergency Department: Aug 09, 2019 Return to Work: Aug 11, 2019 Restrictions: No Restrictions KYA OCAMPO MD Aug 09, 2019 09:59
[2019-08-09] MEDS ORDERED: cefTRIAXone FOR IV USE 1,000 MG in WATER (STERILE) FOR INJECTION 10 ML IV ONE (10:00)
[2019-08-09 10:20] VITALS: BP 127/48
== END 2019-08-09 10:28 | disposition home or self-care (01) ==
LOC: EDUNIT# 07:46 → ER 07:47
DX: N39.0 Urinary tract infection, site not specified (principal); F17.210 Nicotine dependence, cigarettes, uncomplicated; J45.909 Unspecified asthma, uncomplicated; Z88.6 Allergy status to analgesic agent; Z98.890 Other specified postprocedural states; Z88.8 Allergy status to other drugs, medicaments and biological substances; Z79.52 Long term (current) use of systemic steroids
CPT/HCPCS: 36415; 74176; 80053; 81000; 85025; 87088; 96361; 96374; 96375

== ENCOUNTER 2022-06-26 15:46 | Emergency (ER) | payer SELFPAY ==
[~2022-06-26] VITALS: Ht 157.5 cm; Wt 106.4 kg
[~2022-06-26 15:46] MED LIST changes: +CEPH-507 PO; +ONDA4TAB11 SL; -PROM118S4 PO; +PROM118S5 PO
[2022-06-26] MEDS ORDERED: fentaNYL INJ 100 MCG/2 ML AMP IVP STA (16:07)
[2022-06-26] MEDS ORDERED: NS IV 1000 ML 1,000 ML IV STA (16:07)
--- NOTE | 2022-06-26 16:12 | ED Abdominal Pain ---
General Chief Complaint: Abdominal/GI Problems Stated Complaint: RLQ PAIN Nursing Triage Note: Pt states that she started having RLQ pain yesterday while at rest. The pain is a "constant ache", pain waxes and wanes. Denies difficulty urinating and had a normal stool yesterday. Was seen in the clinic today and sent to the ER for evaluation. Source of Information: Patient Exam Limitations: No Limitations History of Present Illness Date Seen by Provider: Jun 26, 2022 Time Seen by Provider: 16:10 Initial Comments Patient is a 52-year-old female presents ED with right lower quad abdominal pain. Started last night with a constant sharp pain with intermittent increase intensity. No radiating pain. Rates pain 8 out of 10. No urinary symptoms or history of similar symptoms. History of hernia repair. Denies nausea, vomiting, diarrhea, fever, chills, chest pain or shortness of breath. Patient states she has not been feeling well for the past week with nausea, GI upset. Went to [facility] she had a COVID and urine test performed and was recommended come to ED for further evaluation. Denies taking thing for pain. No history of kidney stones. Allergies and Home Medications Allergies Coded Allergies: acetaminophen (Unverified Adverse Reaction, Mild, nausea, 08/13/11) propoxyphene napsylate (Unverified Adverse Reaction, Mild, nausea, 08/13/11) Patient Home Medication List Home Medication List Reviewed: Yes Albuterol Sulfate (Albuterol Sulfate 0.63 Mg/3 Ml Ns) 0.63 Mg/3 Ml Vial.neb, 1 EACH IH Q 4 - 6 HRS PRN PRN for SHORTNESS OF BREATH, (Reported) Entered as Reported by: CARLOS HAYES on 03/02/15 0721 Benzonatate (Tessalon Perles) 100 Mg Capsule, 1-2 TAB PO TID Prescribed by: ITZ OLVERA on 02/26/172009 Budesonide (Pulmicort) 1 Mg/2 Ml Ampul.neb, 1 MG IH BID Prescribed by: ITZ OLVERA on 02/26/172009 Cephalexin (Keflex) 500 Mg Capsule, 500 MG PO TID Prescribed by: KYA VALDERRAMA on 08/09/19 0959 D-Methorphan Hb/Prometh HCl (Promethazine-Dm Syrup) 118 Ml Syrup, 1-2 TSP PO Q4H Prescribed by: ITZ OLVERA on 02/26/172009 Hydrocodone Bit/Acetaminophen (Lortab 5 Mg Tablet) 1 Tab Tab, 1 EACH PO Q4H PRN for PAIN-MODERATE Prescribed by: DARIN MAX on 05/29/182137 Hydrocodone/Acetaminophen (Hydrocodone-Acetamin 5-325 mg) 5 Mg-325 Mg Tablet, 1 TAB PO Q4H PRN for PAIN-MODERATE (5-7) Prescribed by: DEAN KIRKLAND on 06/26/221902 Ondansetron (Ondansetron Odt) 4 Mg Tab.rapdis, 4 MG SL Q4H PRN for NAUSEA/VOMITING Prescribed by: KYA VALDERRAMA on 08/09/19 0959 Ondansetron (Ondansetron Odt) 4 Mg Tab.rapdis, 4 MG PO Q4H Prescribed by: DEAN KIRKLAND on 06/26/221902 Prednisone (Prednisone) 10 Mg Tab, 40 MG PO DAILY Prescribed by: ITZ OLVERA on 02/26/172009 Review of Systems Review of Systems Constitutional: No chills EENTM: No Eye Pain Respiratory: Denies Cough, Denies Orthopnea Cardiovascular: Denies Chest Pain Gastrointestinal: Abdominal Pain; Denies Constipated, Denies Diarrhea, Denies Nausea Genitourinary: Denies Burning, Denies Discharge Musculoskeletal: No back pain, No joint pain Skin: No change in color All Other Systems Reviewed Negative Unless Noted: Yes Past Soxnseh-Iheaqz-Afowim Hx Patient Social History Tobacco Use?: Yes Tobacco type used: Cigarettes Smoking Status: Current Everyday Smoker Use of E-Cig and/or Vaping dev: No Substance use?: No Alcohol Use?: No Pt feels they are or have been: No Immunizations Up To Date Tetanus Booster (TDap): Less than 5yrs Influenza Vaccine Up-to-Date: Yes; Up-to-Date Seasonal Allergies Seasonal Allergies: Yes Past Medical History Surgeries: Yes (HERNIA REPAIR) Abdominal, Section, Gallbladder Respiratory: Yes Asthma, Pneumonia, Chronic Bronchitis Cardiac: No Neurological: No Last Menstrual Period: Jun 16, 2020 Reproductive Disorders: No Gastrointestinal: Yes (VENTRAL HERNIA ) Abdominal Hernia, Hiatal Hernia Musculoskeletal: No Endocrine: No Cancer: No Psychosocial: No Integumentary: No Blood Disorders: No Physical Exam Vital Signs Vital Signs - First Documented 06/26/22 15:53 Temp 36.6 Pulse 85 Resp 18 B/P (MAP) 167/86 (113) Pulse Ox 95 O2 Delivery Room Air Capillary Refill : Less Than 3 Seconds Height/Weight/BMI Height: 5'2.00" Weight: 230lbs. oz. 104.310443yk; 42.00 BMI Method:Stated General Appearance: WD/WN, no apparent distress HEENT: PERRL/EOMI, normal ENT inspection, TMs normal, pharynx normal Neck: non-tender, full range of motion, supple Respiratory: chest non-tender, lungs clear, normal breath sounds, no respiratory distress, no accessory muscle use Cardiovascular: regular rate, rhythm, no edema, no gallop, no JVD Gastrointestinal: normal bowel sounds, soft, no organomegaly, no pulsatile mass, tenderness (Right lower quadrant tenderness. 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, no motor/sensory deficits, alert, normal mood/affect, oriented x 3 Skin: normal color Progress/Results/Core Measures Results/Orders Lab Results Laboratory Tests Test 06/26/22 16:10 06/26/22 16:48 Range/Units White Blood Count 11.8 H 4.3-11.0 10^3/uL Red Blood Count 4.97 3.80-5.11 10^6/uL Hemoglobin 15.9 11.5-16.0 g/dL Hematocrit 47 35-52 % Mean Corpuscular Volume 94 80-99 fL Mean Corpuscular Hemoglobin 32 25-34 pg Mean Corpuscular Hemoglobin Concent 34 32-36 g/dL Red Cell Distribution Width 13.0 10.0-14.5 % Platelet Count 285 130-400 10^3/uL Mean Platelet Volume 9.5 9.0-12.2 fL Immature Granulocyte % (Auto) 0 % Neutrophils (%) (Auto) 67 42-75 % Lymphocytes (%) (Auto) 27 12-44 % Monocytes (%) (Auto) 5 0-12 % Eosinophils (%) (Auto) 1 0-10 % Basophils (%) (Auto) 0 0-10 % Neutrophils # (Auto) 7.9 H 1.8-7.8 10^3/uL Lymphocytes # (Auto) 3.2 1.0-4.0 10^3/uL Monocytes # (Auto) 0.6 0.0-1.0 10^3/uL Eosinophils # (Auto) 0.1 0.0-0.3 10^3/uL Basophils # (Auto) 0.0 0.0-0.1 10^3/uL Immature Granulocyte # (Auto) 0.0 0.0-0.1 10^3/uL Sodium Level 138 135-145 MMOL/L Potassium Level 3.5 L 3.6-5.0 MMOL/L Chloride Level 101 98-107 MMOL/L Carbon Dioxide Level 25 21-32 MMOL/L Anion Gap 12 5-14 MMOL/L Blood Urea Nitrogen 12 7-18 MG/DL Creatinine 0.80 0.60-1.30 MG/DL Estimat Glomerular Filtration Rate 88 BUN/Creatinine Ratio 15 Glucose Level 122 H 70-105 MG/DL Calcium Level 10.6 H 8.5-10.1 MG/DL Corrected Calcium 10.6 H 8.5-10.1 MG/DL Total Bilirubin 1.1 H 0.1-1.0 MG/DL Aspartate Amino Transf (AST/SGOT) 16 5-34 U/L Alanine Aminotransferase (ALT/SGPT) 27 0-55 U/L Alkaline Phosphatase 92 40-136 U/L Total Protein 7.2 6.4-8.2 GM/DL Albumin 4.0 3.2-4.5 GM/DL Lipase 27 8-78 U/L Urine Color YELLOW Urine Clarity SL CLOUDY Urine pH 6.5 5-9 Urine Specific [place] <=1.005 1.016-1.022 Urine Protein NEGATIVE NEGATIVE Urine Glucose (UA) NEGATIVE NEGATIVE Urine Ketones NEGATIVE NEGATIVE Urine Nitrite NEGATIVE NEGATIVE Urine Bilirubin NEGATIVE NEGATIVE Urine Urobilinogen 0.2 < = 1.0 MG/DL Urine Leukocyte Esterase NEGATIVE NEGATIVE Urine RBC (Auto) NEGATIVE NEGATIVE Urine RBC NONE /HPF Urine WBC 2-5 /HPF Urine Squamous Epithelial Cells 5-10 /HPF Urine Crystals NONE /LPF Urine Bacteria FEW H /HPF Urine Casts NONE /LPF Urine Mucus NEGATIVE /LPF Urine Culture Indicated YES My Orders Orders - MOHSEN PAEZ Urinalysis (06/26/22 15:53) Cbc With Automated Diff (06/26/22 16:07) Comprehensive Metabolic Panel (06/26/22 16:07) Lipase (06/26/22 16:07) Ns Iv 1000 Ml (Sodium Chloride 0.9%) (06/26/22 16:07) Fentanyl Inj (Sublimaze Injection) (06/26/22 16:07) Ct Abd/Pelv W (Appendicitis) (06/26/22 16:09) Iohexol Injection (Omnipaque 350 Mg/Ml 1 (06/26/22 17:15) Ns (Ivpb) (Sodium Chloride 0.9% Ivpb Bag (06/26/22 17:15) Urine Culture (06/26/22 16:48) Morphine Injection (Morphine Injection (06/26/22 18:15) Medications Given in ED Current Medications Medications Dose Ordered Sig/Jazmyne Route Start Time Stop Time Status Last Admin Dose Admin Iohexol 100 ml ONCE ONCE IV 06/26/22 17:15 06/26/22 17:16 DC 06/26/22 17:02 100 ML Morphine Sulfate 4 mg ONCE ONCE IVP 06/26/22 18:15 06/26/22 18:24 DC 06/26/22 18:30 4 MG Sodium Chloride 100 ml ONCE ONCE IV 06/26/22 17:15 06/26/22 17:16 DC 06/26/22 17:02 80 ML Vital Signs/I&O 06/26/22 15:53 Temp 36.6 Pulse 85 Resp 18 B/P (MAP) 167/86 (113) Pulse Ox 95 O2 Delivery Room Air Blood Pressure Mean: 113 Departure Communication (PCP) Patient urinalysis negative for infection. Lab work shows slightly elevated white blood count but otherwise unremarkable. Patient Was given a dose of IV pain medication with improvement of pain. She states she has been feeling nauseous over the past week. Refused anything for nausea. Denies any diarrhea or vomiting. Developed right lower quadrant pain last night with increasing pain today. CT abdomen pelvis was negative for any acute abnormality. Diverticular disease without evidence of diverticulitis. No evidence of obstruction, colitis. She does not appear toxic septic but did have significant provement of abdominal pain. She has a pending COVID that was done at the clinic today. She states she has been feeling weak and fatigued over the past week. This could be viral in nature. Due to reassuring lab work, imaging with no increasing pain patient will be discharged with pain medication and nausea medication. If any worsening pain to return back to ED for further evaluation. Impression Primary Impression: Abdominal pain Disposition: HOME, SELF-CARE Condition: Stable Departure-Patient Inst. Decision time for Depature: 19:01 Referrals: [facility] (PCP/Family) Primary Care Physician Patient Instructions: Abdominal Pain, Adult ED Scripts Hydrocodone/Acetaminophen (Hydrocodone-Acetamin 5-325 mg) 5 Mg-325 Mg Tablet 1 TAB PO Q4H PRN for PAIN-MODERATE (5-7), #8 TAB Prov: MOHSEN PAEZ 06/26/22 Ondansetron (Ondansetron Odt) 4 Mg Tab.rapdis 4 MG PO Q4H, #8 TAB Prov: MOHSEN PAEZ 06/26/22 Work/School Note: Work Release Form Date Seen in the Emergency Department: Jun 26, 2022 Return to Work: Jun 30, 2022 MOHSEN PAEZ Jun 26, 2022 16:12
[2022-06-26 16:23] LABS: BASOPHILS % (AUTO) 0 % (0-10); EOSINOPHILS # (AUTO) 0.1 10^3/uL (0.0-0.3); EOSINOPHILS % (AUTO) 1 % (0-10); HEMATOCRIT 47 % (35-52); HEMOGLOBIN 15.9 g/dL (11.5-16.0); LYMPHOCYTES # (AUTO) 3.2 10^3/uL (1.0-4.0); LYMPHOCYTES % (AUTO) 27 % (12-44); MEAN CORPUSCULAR HEMOGLOBIN 32 pg (25-34); MEAN CORPUSCULAR HGB CONC 34 g/dL (32-36); MEAN CORPUSCULAR VOLUME 94 fL (80-99); MEAN PLATELET VOLUME 9.5 fL (9.0-12.2); MONOCYTES # (AUTO) 0.6 10^3/uL (0.0-1.0); MONOCYTES % (AUTO) 5 % (0-12); NEUTROPHILS # (AUTO) 7.9 10^3/uL (1.8-7.8); NEUTROPHILS % (AUTO) 67 % (42-75); PLATELET COUNT 285 10^3/uL (130-400); WHITE BLOOD COUNT 11.8 10^3/uL (4.3-11.0)
[2022-06-26 16:48] LABS: BILIRUBIN,TOTAL 1.1 MG/DL (0.1-1.0); CALCIUM 10.6 MG/DL (8.5-10.1); CREATININE SERUM 0.8 MG/DL (0.60-1.30); POTASSIUM 3.5 MMOL/L (3.6-5.0); TOTAL PROTEIN 7.2 GM/DL (6.4-8.2)
[2022-06-26 16:54] LABS: CLARITY,URINE SL CLOUDY; COLOR,URINE YELLOW; PH,URINE 6.5 (5-9); PROTEIN,URINE NEGATIVE (NEGATIVE)
[2022-06-26 16:55] LABS: BILIRUBIN,URINE NEGATIVE (NEGATIVE); GLUCOSE, URINE (UA) NEGATIVE (NEGATIVE); KETONES,URINE NEGATIVE (NEGATIVE); LEUKOCYTE ESTERASE ,URINE NEGATIVE (NEGATIVE); NITRITE,URINE NEGATIVE (NEGATIVE)
[2022-06-26] MEDS ORDERED: IOHEXOL 350 MG/ML 100 ML (OMNIPAQUE 350) VIAL IV ONE (17:15)
[2022-06-26] MEDS ORDERED: NS 100 ML (IVPB) BAG IV ONE (17:15)
--- NOTE | 2022-06-26 17:16 | Diagnostic Imaging Report ---
PROCEDURE: CT abdomen and pelvis with contrast, rule out appendicitis. TECHNIQUE: Multiple contiguous axial images were obtained through the abdomen and pelvis after the administration of intravenous contrast. All CT scans use one or more of the following dose optimizing techniques: automated exposure control, MA and/or KvP adjustment based on patient size and exam type or iterative reconstruction. INDICATION: Right lower quadrant abdominal pain. COMPARISON: Prior examination from 08/09/2019. FINDINGS: The lung bases are clear. The heart size is normal. The liver is normal in size without focal lesions. Gallbladder is surgically absent. There is no biliary ductal dilatation. Spleen is normal. Pancreas and adrenal glands are unremarkable. Kidneys are normal in appearance. Aorta is nonaneurysmal. The bowel gas pattern is nonspecific. The appendix is normal. There is no free air. There is no ascites. There is no focal inflammatory change. Bladder is normal. Uterus is normal. There may be some mild diverticular disease without evidence of diverticulitis. There are degenerative changes in the spine. IMPRESSION: 1. Mild diverticular disease without evidence of diverticulitis. 2. No other acute abnormality in the abdomen or pelvis. Specifically, there is no evidence of appendicitis. Gallbladder is surgically absent. Dictated by: Dictated on workstation # [id number]
[2022-06-26 17:31] LABS: BACTERIA,URINE FEW /HPF
[2022-06-26] MEDS ORDERED: morphine INJ 10 MG/ML 1ML (SYR OR VIAL) IVP ONE (18:15)
[2022-06-26] MEDS ORDERED: ACHD5005 PO (19:03)
[2022-06-26] MEDS ORDERED: ONDA4TAB11 PO (19:03)
[2022-06-26 19:07] VITALS: BP 132/76
== END 2022-06-26 19:07 | disposition home or self-care (01) ==
LOC: EDUNIT# 15:46 → ER 15:48
DX: R10.31 Right lower quadrant pain (principal); F17.210 Nicotine dependence, cigarettes, uncomplicated; Z87.19 Personal history of other diseases of the digestive system; Z88.6 Allergy status to analgesic agent
CPT/HCPCS: 36415; 74177; 80053; 81000; 83690; 85025; 87088